=== PATIENT | male | born 2000 | race Two or more races ===

== ENCOUNTER 2024-03-02 03:01 | Emergency (ER) | payer OTHER ==
[~2024-03-02] VITALS: Ht 160 cm; Wt 65.6 kg
[~2024-03-02 03:01] MED LIST: FAMO20TA10 PO
[2024-03-02 03:12] VITALS: BP 120/80; PULSE 73; RESP 16; TEMP 98.2; O2SAT 97
[2024-03-02] MEDS ORDERED: TOB03OS OP (06:55)
[2024-03-02] MEDS: FLUORESCEIN SOD OPTH TEST STRIP OP ONE (07:15)
== END 2024-03-02 07:22 | disposition home or self-care (01) ==
LOC: ER 03:01
DX: S05.01XA Injury of conjunctiva and corneal abrasion without foreign body, right eye, initial encounter (principal); Z79.899 Other long term (current) drug therapy; Z91.010 Allergy to peanuts; X58.XXXA Exposure to other specified factors, initial encounter; Y93.89 Activity, other specified; Y92.89 Other specified places as the place of occurrence of the external cause; Y99.8 Other external cause status